=== PATIENT | male | born 1975 | race Caucasian/White ===

== ENCOUNTER 2022-02-12 08:15 | Emergency (ER) | payer OTHER, MEDICAID, SELFPAY ==
[2022-02-12 08:28] VITALS: BP 158/93; PULSE 108; RESP 18; TEMP 36.9; O2SAT 98; BMI 26.6
--- NOTE | 2022-02-12 08:38 | ED.SKABFB ---
HPI - Skin/Abscess/Foreign Bdy General Chief complaint: Skin/Abscess/Foreign Body Stated complaint: mosquito bite rt leg, hangnail Time Seen by Provider: 02/12/22 08:33 Source: patient Mode of arrival: Ambulatory Limitations: no limitations History of Present Illness HPI narrative: Patient is a 46-year-old male history of ADHD presenting with multiple skin concerns. He said that he was pressure washing of roof a week ago he got bit by mosquitos on the legs. He has 2 areas on his right leg which seemed to be more erythematous swollen but no drainage. He has been putting a topical antibiotic ointment on it. He said he had 1 on the left which actually seems to be a bit better. He also has cystic acne he shaves his face hard and close and has multiple areas on his face skin abrasions. He says he does this regularly. He has also been applying topical antibiotic ointment to his face. He says he may have had some fever he is afebrile here. Not allergic to any antibiotics. He was concerned that he might lose his leg. He also has a hangnail on his right middle finger. Related Data Home Medications Medication Instructions Recorded Confirmed dextroamphetamine-amphetamine 5 mg Unknown ##0 07/16/16 tablet (Adderall) Previous Rx's Medication Instructions Recorded ibuprofen 800 mg tablet 800 mg PO TIDP PRN #20 tabs 07/30/16 mupirocin 2 % topical ointment 2 % topical BID 10 days ##0 07/30/16 mupirocin 2 % topical ointment 1 applictn topical BID #15 grams 02/12/22 sulfamethoxazole 800 1 tab PO BID 5 days #10 tabs 02/12/22 mg-trimethoprim 160 mg tablet (Bactrim DS) Allergies Allergy/AdvReac Type Severity Reaction Status Date / Time amphetamine [From ADDERALL] Allergy Intermediate MAKES HIM Unverified 10/31/17 12:40 ITCHY dextroamphetamine Allergy Intermediate MAKES HIM Unverified 10/31/17 12:40 [From ADDERALL] ITCHY Review of Systems Review of Systems Narrative: GENERAL: Denies chills,fever HEENT: Denies throat pain RESPIRATORY: Denies dyspnea, cough, wheezing CARDIOVASCULAR: Denies chest pain, palpitations GASTROINTESTINAL: Denies nausea, vomiting MUSCULOSKELETAL: Denies extremity pain, injury SKIN: see HPI NEUROLOGIC: Denies weakness, dizziness, headache, numbness 8 point review of systems is negative except for those stated above and HPI Patient History Social History Smoking Status: Current every day smoker Smoking Status: Current every day smoker tobacco type: cigarettes, e-cigarettes and vaping alcohol intake frequency: a few times a week Substance Use Type: prescription drug Exam Initial Vital Signs Initial Vital Signs: Vital Signs Temperature 98.4 F 02/12/22 08:28 Pulse Rate 108 H 02/12/22 08:28 Respiratory Rate 18 02/12/22 08:28 Blood Pressure 158/93 H 02/12/22 08:28 Pulse Oximetry 98 02/12/22 08:28 Oxygen Delivery Method 02/12/22 08:28 GENERAL: Well-appearing, well-nourished and in no acute distress. CARDIOVASCULAR: peripheral pulses in tact, cap refill <2 sec RESPIRATORY: No respiratory distress, speaks in full sentences without difficulty EXTREMITIES: Normal range of motion, no clubbing or edema. Neurovascularly intact NEUROLOGICAL: Cranial nerves II through XII grossly intact. Normal gait and speech. SKIN: 2 areas on right leg erythematous scabbed over no fluctuation no drainage mildly swollen. 1 small area left leg change minimal erythema. Face has multiple areas of abrasion no surrounding erythema Course Vital Signs Vital signs: Vital Signs - 8 hr 02/12/22 08:28 Temperature 98.4 F Pulse Rate 108 H Respiratory Rate 18 Blood Pressure 158/93 H Pulse Oximetry 98 Oxygen Delivery Method Room Air MDM - Skin/Abscess/Foreign Bdy MDM Narrative Medical decision making narrative: Patient has a few areas of erythema he has multiple areas on his face but no surrounding erythema is. There is no airway obstruction. He is mildly tachycardic afebrile. Does not appear to need blood work today. Will start him on some antibiotics. Told him not to shave until his face has healed. Discharge Plan Departure Patient Disposition: Home Clinical Impression: Facial cellulitis, Cellulitis Activity Restrictions/Additional Instructions: *You have been diagnosed with facial cellulitis, right leg cellulitis *What to do: Do not shave her face until your face heels. Apply antibiotic ointment to both areas twice a day. *Continue to take medications as directed-> [facility] Bactrim 1 tablet twice a day for 7 days Mupirocin twice a day for 7 days *Follow up with your primary care provider in 2-3 days or call [phone] *Return to ER if you should have increasing redness swelling pain fever, difficulty breathing or any new, worsening or concerning symptoms Prescriptions: New sulfamethoxazole-trimethoprim [Bactrim DS] 800-160 mg tablet 1 tab PO BID 5 Days Qty: 10 0RF mupirocin 2 % ointment 1 applictn TOP BID Qty: 15 0RF No Action dextroamphetamine-amphetamine [Adderall] 5 MG tablet Unknown Qty: 0 ibuprofen 800 MG tablet 800 mg PO TIDP PRNQty: 20 0RF mupirocin 2 % ointment 2 % Topical BID 10 Days Qty: 0 0RF Referrals: Gaudencio Love MD [Primary Care Provider] - Visit Report Forms: Patient Portal/API
== END 2022-02-12 09:01 | disposition home or self-care (01) ==
PROVIDERS: Emergency Provider Emergency Medicine; PCP Urology
DX: L03.211 Cellulitis of face (principal); L03.115 Cellulitis of right lower limb
CPT/HCPCS: 99281